=== PATIENT | female | born 1945 | race Caucasian/White ===

== ENCOUNTER → 2020-07-08 | Outpatient (CLI) | payer MEDICARE, BC | LOC: EXRD 11:39 | DX: J47.9 Bronchiectasis, uncomplicated (principal) | CPT/HCPCS: 36600; 71046; 82803; 94010; 94729 ==

== ENCOUNTER → 2020-09-30 | Outpatient (CLI) | payer MEDICARE, BC | LOC: KOH-I 13:28 | DX: S92.352A Displaced fracture of fifth metatarsal bone, left foot, initial encounter for closed fracture (principal); S92.355A Nondisplaced fracture of fifth metatarsal bone, left foot, initial encounter for closed fracture | CPT/HCPCS: 73630 ==